=== PATIENT | male | born 1960 | race Caucasian/White ===

== ENCOUNTER → 2020-06-18 | Day surgery (SDC) | payer MEDICARE, MEDICAID ==
[~2020-06-18] VITALS: Ht 165.1 cm; Wt 72.6 kg
[~2020-06-18] MED LIST: ACETAMINOPHEN500 M5 PO; ARTANE2 MG ORAL; ATARAX50 MG ORAL; ATIVAN1 MG ORAL; CICLODAN 0.77%544 GM TP; DEPAKOTE ER500 MG ORAL; DOCUSATE SODIU100 MG ORAL; DOXAZOSIN MESYLA1 MG ORAL; DiphenhydrAMINE 50mg/ml Inj IVP PRN; FISH OIL500 M2 PO; LEVOTHYROXINE75 MCG ORAL; LORazepam Inj 2mg/ml 1ml IV PRN; LR 1000ml 1,000 ML IVLG SCH; MELATONIN3 MG ORAL; MILK OF MA2400 MG/10 ORAL; MILK OF MA400 MG/51 ORAL; MIRALAX17 G2 ORAL; Midazolam 2mg/2ml Inj IVP PRN; NIACIN ER500 MG ORAL; OMEPRAZOLE20 M2 ORAL; PINK BISMU262 MG/15 PO; SIMVASTATIN10 MG ORAL; TRAZODONE HCL150 MG ORAL; VASCEPA1 GM PO; ZYPREXA10 MG ORAL
[2020-06-18 10:28] VITALS: BP 121/64
--- NOTE | 2020-06-18 11:44 | Anethesia Preoperative Eval ---
Anesthesia Pre-op PMH/ROS General Date of Evaluation: Jun 18, 2020 Anesthesiologist: Carlos ASA Score: ASA 3 Mallampati Score Class I : Soft palate, uvula, fauces, pillars visible Class II: Soft palate, uvula, fauces visible Class III: Soft palate, base of uvula visible Class IV: Only hard plate visible Mallampati Classification: Class II Surgeon: Anthony Diagnosis: Screening Surgical Procedure: colonoscopy Anesthesia History: none Family History: no anesthesia problems Allergies: Coded Allergies: No Known Allergies (Unverified , 08/26/14) Medications: see eMAR Patient NPO?: Yes NPO Date: Jun 18, 2020 NPO Time: 00:00 Past Medical History Cardiovascular: Reports: other - HLD; Denies: HTN, CAD, [place], valve dz, arrhythmia Pulmonary: Denies: asthma, COPD, [place], other Gastrointestinal/Genitourinary: Reports: GERD, other - hiatal hernia; Denies: CRI, ESRD Neurologic/Psychiatric: Reports: other - MR, aphasia, schizophrenia; Denies: dementia, CVA, depression/anxiety, TIA Endocrine: Reports: DM, hypothyroidism; Denies: steroids, other HEENT: Denies: cataract (L), cataract (R), glaucoma, [place] (L), [place] (R), other Hematology/Immune: Denies: anemia, DVT, bleeding disorder, other Musculoskeletal/Integumentary: Denies: OA, RA, DJD, DDD, edema, other Anesthesia Pre-op Phys. Exam Physician Exam Last Vital Signs Date Time Temp Pulse Resp B/P (MAP) Pulse Ox O2 Delivery O2 Flow Rate FiO2 06/18/20 10:28 98.2 76 18 121/64 99 Room Air Constitutional: NAD Cardiovascular: RRR Respiratory: CTA Airway Exam Mallampati Score: Class II MO: limited ROM: limited Anesthesia Pre-op A/P Labs see chart Studies Pre-op Studies: EKG - sr Risk Assessment & Plan Assessment: ASA III Plan: MAC Status Change Before Surgery: No Pre-Antibiotics Drug: N/A Susannah Gonzalez MD Jun 18, 2020 11:44
--- NOTE | 2020-06-18 14:16 | Pre-Procedure Note/Attestation ---
Pre-Procedure Note/Attestation Complete Prior to Procedure Planned Procedure: not applicable Procedure Narrative: colonoscopy Indications for Procedure Pre-Operative Diagnosis: screening Attestation I attest that I discussed the nature of the procedure; its benefits; risks and complications; and alternatives (and the risks and benefits of such alternatives), prior to the procedure, with the patient (or the patient's legal welding equipment sales representative). I attest that, if there was a reasonable possibility of needing a blood tra nsfusion, the patient (or the patient's legal welding equipment sales representative) was given the [facility] standardized written summary, pursuant to the [place] Blood Safety Act ([place] Health and Safety Code # 1645, as amended). I attest that I re-evaluated the patient just prior to the surgery and that there has been no change in the patient's H&P, except as documented below: Jac Cruz MD Jun 18, 2020 14:16
--- NOTE | 2020-06-18 14:16 | Short Stay Surgery H&P ---
History of Present Illness History of Present Illness Chief Complaint see office note HPI Rikki Mckeon is a 59 year old male who was admitted on for Screening Patient History Allergies: Coded Allergies: No Known Allergies (Unverified , 08/26/14) Medication History Scheduled Divalproex Sodium* (Depakote Er*), 500 MG ORAL EVERY 12 HOURS, (Reported) Docusate Sodium* (Docusate Sodium*), 100 MG ORAL TWICE A DAY, (Reported) Doxazosin Mesylate* (Doxazosin Mesylate*), 2 MG ORAL DAILY, (Reported) Icosapent Ethyl (Vascepa), 1 GM PO BID, (Reported) Levothyroxine Sodium* (Synthorid*), 88 MCG ORAL DAILY, (Reported) Lorazepam* (Ativan*), 1 MG ORAL BEDTIME, (Reported) Olanzapine* (Zyprexa*), 20 MG ORAL QHS, (Reported) Omeprazole (Omeprazole), 20 MG ORAL DAILY, (Reported) Simvastatin (Zocor), 5 MG ORAL BEDTIME, (Reported) Trihexyphenidyl HCl (Trihexyphenidyl HCl), 1 MG ORAL BID, (Reported) Scheduled PRN Melatonin (Melatonin), 3 MG ORAL BEDTIME PRN for Insomnia, (Reported) Discontinued Medications Acetaminophen (Acetaminophen), 1,000 MG PO PRN PRN for For Pain, (Reported) Discontinued Reason: Pt stopped taking med Bismuth Subsalicylate ([place] Bismuth), 30 ML PO Q6HR, (Reported) Discontinued Reason: Pt stopped taking med Ciclopirox/Skin Cleanser No.28 (Ciclodan 0.77% Cream Kit), 544 GM TP BID, (Reported) Discontinued Reason: MD discontinued med Hydroxyzine HCl (Hydroxyzine Pamoate), 50 MG ORAL FOUR TIMES A DAY PRN for Itching/Pruritis, (Reported) Discontinued Reason: MD discontinued med Magnesium Hydroxide* (Milk Of Magnesia*), 30 ML ORAL DAILY PRN for For Pain, (Reported) Discontinued Reason: MD discontinued med Magnesium Hydroxide* (Milk Of Magnesia*), 30 ML ORAL DAILY PRN for Constipation, (Reported) Discontinued Reason: MD discontinued med [place]-3 Fatty Acids (Fish Oil), 1,000 MG PO TID, (Reported) Discontinued Reason: MD discontinued med Polyethylene Glycol 3350* (Miralax*), 17 GM ORAL DAILY PRN for Constipation, (Reported) Discontinued Reason: MD discontinued med Physical Exam Vital Signs Last Vital Signs Date Time Temp Pulse Resp B/P (MAP) Pulse Ox O2 Delivery O2 Flow Rate FiO2 06/18/20 10:28 98.2 76 18 121/64 99 Room Air Plan Attestation Are the patient's medical conditions optimized for surgery? Jac Cruz MD Jun 18, 2020 14:16
--- NOTE | 2020-06-18 14:34 | Endoscopy Procedure Note ---
Endoscopy Procedure Note General Indication for Procedure: screening Procedures Performed: colonoscopy Operative Findings/Diagnosis: one polyp Specimen: yes Pt Tolerated Procedure Well: Yes Estimated Blood Loss: none Anesthesia Anesthesiologist: nimco Anesthesia: MAC Inserted Devices Implant(s) used?: No Quality Quality of Bowel Preparation: Poor Did scope reach the cecum?: No Why scope didn't reach cecum: Bowel preparation poor Was there any complications?: No GI Core Measures 50 yrs or older w/o bx or poly: No 10yrs. F/U recommended: Yes If not recommended, why?: Above average risk 18 years or older w/prev. colo: No Jac Cruz MD Jun 18, 2020 14:34
[2020-06-18 14:37] VITALS: BP 109/69
--- NOTE | 2020-06-18 14:41 | Immediate Post-Op Evaluation ---
Immediate Post-Op Evalulation Immediate Post-Op Evalulation Procedure: colonoscopy Date of Evaluation: Jun 18, 2020 Time of Evaluation: 14:42 IV Fluids: 500 Blood Products: 0 Estimated Blood Loss: 0 Urinary Output: 0 Blood Pressure Systolic: 106 Blood Pressure Diastolic: 65 Pulse Rate: 73 Respiratory Rate: 16 O2 Sat by Pulse Oximetry: 98 Temperature (Fahrenheit): 97.9 Pain Score (1-10): 0 Nausea: No Vomiting: No Complications 0 Patient Status: awake, reacts, patent, none Hydration Status: adequate Drug: N/A Susannah Gonzalez MD Jun 18, 2020 14:41
--- NOTE | 2020-06-18 14:42 | 48 Hour Post Anesthesia Eval ---
Post Anesthesia Evaluation Procedure: colonoscopy Date of Evaluation: Jun 18, 2020 Airway: patent Nausea: No Vomiting: No Pain Intensity: 0 Hydration Status: adequate Cardiopulmonary Status: at baseline Mental Status/LOC: patient returned to baseline Post-Anesthesia Complications: 0 Follow-up care needed: ready to discharge Susannah Gonzalez MD Jun 18, 2020 14:42
[2020-06-18 14:45] VITALS: BP 116/67
[2020-06-18 14:50] VITALS: BP 115/56
[2020-06-18 15:00] VITALS: BP 108/56
--- NOTE | 2020-06-18 18:14 | Procedure Note ---
DATE OF PROCEDURE: 06/18/2020 SURGEON: Jac Cruz MD. PROCEDURE: Colonoscopy with biopsy. ANESTHESIA: Per Dr. García. INSTRUMENT: Olympus adult flexible colonoscope. INDICATION: Screening colonoscopy. REASON FOR PROCEDURE: The procedure, risks, benefits, and possible consequences, including hemorrhage, aspiration, perforation and infection, and alternative treatments, were explained to the patient/legal guardian by Dr. Jac Cruz and the patient/legal guardian understood and accepted these risks. PROCEDURE IN DETAIL: After informed consent was obtained and the patient was adequately sedated, first rectal was performed which was positive for internal hemorrhoids. Then, the scop was advanced from the rectum into the ascending colon. Given this quality of prep and poor prep, we could not advance the scope to the cecum. This examination was limited given this prep. We were able to see one polyp in the transverse colon measured roughly about 4 mm, removed with cold biopsy forceps technique. The rest of the examination is limited. SUMMARY OF FINDINGS: 1. Incomplete colonoscopy examination given poor prep. 2. One colonic polyp removed from the transverse colon. RECOMMENDATIONS: 1. Follow path. 2. Given this prep and one polyp, we will recommend repeat colonoscopy in one year. Jac Cruz M.D. DR: Clement JOB#: [id number] CC:
== END | disposition home or self-care (01) ==
LOC: GAS 10:04
DX: Z12.11 Encounter for screening for malignant neoplasm of colon (principal); K63.5 Polyp of colon; Z79.899 Other long term (current) drug therapy; E78.5 Hyperlipidemia, unspecified; K21.9 Gastro-esophageal reflux disease without esophagitis; E11.9 Type 2 diabetes mellitus without complications; E03.9 Hypothyroidism, unspecified
CPT/HCPCS: 45380; 94003; U0004; 94150